=== PATIENT | male | born 1970 | race Caucasian/White ===

== ENCOUNTER 2022-12-05 08:18 | Outpatient (CLI) | payer OTHER, SELFPAY | END 2022-12-05 08:19 | disposition home or self-care (01) | LOC: NFLDREF 12-07 04:17 | PROVIDERS: PCP Family Medicine; Referring Provider Family Medicine; Visit Provider Emergency Medicine | DX: Z00.00 Encounter for general adult medical examination without abnormal findings (principal); E78.5 Hyperlipidemia, unspecified; R73.09 Other abnormal glucose; R74.8 Abnormal levels of other serum enzymes; E11.9 Type 2 diabetes mellitus without complications; E66.9 Obesity, unspecified; Z12.5 Encounter for screening for malignant neoplasm of prostate | CPT/HCPCS: 80053; 80061; 82043; 82570; 84153 ==

== ENCOUNTER 2023-03-05 08:08 | Outpatient (CLI) | payer OTHER, SELFPAY | END 2023-03-05 08:09 | disposition home or self-care (01) | LOC: NFLDREF 18:16 | PROVIDERS: PCP Emergency Medicine; Referring Provider Emergency Medicine; Visit Provider Emergency Medicine | DX: I10 Essential (primary) hypertension (principal) | CPT/HCPCS: 80048 ==

== ENCOUNTER 2023-11-06 09:42 | Outpatient (CLI) | payer BC, SELFPAY | END 2023-11-06 09:43 | disposition home or self-care (01) | PROVIDERS: PCP Emergency Medicine; Visit Provider Emergency Medicine | DX: E78.2 Mixed hyperlipidemia (principal) | CPT/HCPCS: 80048; 80061 ==

== ENCOUNTER 2023-11-15 07:41 | Day surgery (SDC) | payer BC, SELFPAY ==
[2023-11-15] VITALS (12 sets, daily range): BP systolic 128–164; BP diastolic 71–102; PULSE 82–93; RESP 12–16; TEMP 36.7–36.9; O2SAT 98; BMI 38.4
[2023-11-15] MEDS: LACTATED RINGERS 1000 ML 1,000 ML 100 ML IV (08:20)
[2023-11-15] MEDS: SODIUM CHLORIDE 0.9 % (FLUSH) 10 ML SYRINGE IVF (08:45)
--- NOTE | 2023-11-15 10:05 | W.PM.ENTPROC ---
Procedure Note Date of procedure: 11/15/23 Procedure: Preoperative diagnosis chronic tonsillitis, tonsillar hypertrophy, upper airway obstruction Postoperative diagnosis same Procedure tonsillectomy Under general endotracheal anesthesia the patient was prepped and draped in usual fashion. The McIvor mouth gag was inserted the tongue retracted forward. No submucous cleft was noted on inspection or palpation. The right and left tonsils were removed with a combination of needlepoint cautery, bipolar cautery and suction cautery. Meticulous hemostasis was achieved. There was no significant adenoid tissue present on exam The patient was extubated in the operating room taken recovery in satisfactory condition. Blood loss was less than 10 mL. Surgeon: Malik Neumann MD
--- NOTE | 2023-11-15 10:13 | W.ANESCHARGE ---
Anesthesia Charges Start Date/Time Anesthesia Start Date: 11/15/23 Anesthesia Start Time: 09:32 Stop Date/Time Anesthesia Stop Date: 11/15/23 Anesthesia Stop Time: 10:13
--- NOTE | 2023-11-15 10:49 | W.ANESCHARGE ---
Anesthesia Charges Start Date/Time Anesthesia Start Date: 11/15/23 Anesthesia Start Time: 09:32 Stop Date/Time Anesthesia Stop Date: 11/15/23 Anesthesia Stop Time: 10:13
--- NOTE | 2023-11-15 10:50 | W.ANESCHARGE ---
Anesthesia Charges Start Date/Time Anesthesia Start Date: 11/15/23 Anesthesia Start Time: 09:32 Stop Date/Time Anesthesia Stop Date: 11/15/23 Anesthesia Stop Time: 10:13
[2023-11-15] MEDS: IBUPROFEN 100 MG/5 ML SUSP 200 MG PO (10:52)
[2023-11-15] MEDS: OXYCODONE 1 MG/ML ORAL SOLN 5 MG PO (10:52)
== END 2023-11-15 12:09 | disposition home or self-care (01) ==
PROVIDERS: PCP Emergency Medicine; Visit Provider Otolaryngology
PROC: (CPT 42826; principal; 2023-11-15 09:30)
DX: J35.01 Chronic tonsillitis (principal); E11.9 Type 2 diabetes mellitus without complications; G47.33 Obstructive sleep apnea (adult) (pediatric); Z99.89 Dependence on other enabling machines and devices; I10 Essential (primary) hypertension
CPT/HCPCS: 42826; 00160; 00170; 82962; 88304; A9270; J0330; J1100; J2405; J2704; J3010; J7120

== ENCOUNTER 2023-12-18 08:38 | Outpatient (CLI) | payer BC, SELFPAY | END 2023-12-18 08:39 | disposition home or self-care (01) | PROVIDERS: PCP Emergency Medicine; Visit Provider Emergency Medicine | DX: E78.5 Hyperlipidemia, unspecified (principal); I10 Essential (primary) hypertension; R74.01 Elevation of levels of liver transaminase levels; E11.9 Type 2 diabetes mellitus without complications; Z79.84 Long term (current) use of oral hypoglycemic drugs; Z12.5 Encounter for screening for malignant neoplasm of prostate | CPT/HCPCS: 80053; 80061; 82043; 82570; G0103 ==

== ENCOUNTER 2024-01-20 06:20 | Outpatient (CLI) | payer BC, SELFPAY ==
--- NOTE | 2024-01-20 07:59 | W.ANESCHARGE ---
Anesthesia Charges Start Date/Time Anesthesia Start Date: 01/20/24 Anesthesia Start Time: 07:25 Stop Date/Time Anesthesia Stop Date: 01/20/24 Anesthesia Stop Time: 07:57
--- NOTE | 2024-01-20 10:18 | W.ANESCHARGE ---
Anesthesia Charges Start Date/Time Anesthesia Start Date: 01/20/24 Anesthesia Start Time: 07:25 Stop Date/Time Anesthesia Stop Date: 01/20/24 Anesthesia Stop Time: 07:57
== END 2024-01-20 06:21 | disposition home or self-care (01) ==
LOC: OP CLINIC 06:20
PROVIDERS: PCP Emergency Medicine; Visit Provider Surgery
DX: Z12.11 Encounter for screening for malignant neoplasm of colon (principal); K57.30 Diverticulosis of large intestine without perforation or abscess without bleeding; Z86.010 Personal history of colon polyps
CPT/HCPCS: 45378; 812; J2704

== ENCOUNTER 2024-11-17 08:40 | Outpatient (CLI) | payer BC, SELFPAY | END 2024-11-17 08:41 | disposition home or self-care (01) | PROVIDERS: PCP Emergency Medicine; Visit Provider Emergency Medicine | DX: E78.2 Mixed hyperlipidemia (principal); I10 Essential (primary) hypertension; E11.65 Type 2 diabetes mellitus with hyperglycemia; Z79.84 Long term (current) use of oral hypoglycemic drugs; Z12.5 Encounter for screening for malignant neoplasm of prostate | CPT/HCPCS: 80053; 80061; 82043; 82570; G0103 ==

== ENCOUNTER 2025-01-21 08:05 | Outpatient (CLI) | payer BC, SELFPAY | END 2025-01-21 08:06 | disposition home or self-care (01) | LOC: NFLDREF 02-02 06:52 | PROVIDERS: PCP Emergency Medicine; Referring Provider Emergency Medicine; Visit Provider Emergency Medicine | DX: I10 Essential (primary) hypertension (principal) | CPT/HCPCS: 80048 ==